=== PATIENT | female | born 1995 | race Caucasian/White ===

== ENCOUNTER → 2020-10-02 | Outpatient (CLI) | payer OTHER ==
[~2020-10-02] MED LIST: DOCUSATE SODIU100 MG PO; HYDROCODON-ACE1 EAC4 PO; IBU800 MG PO; IBUPROFEN600 MG PO; IRON325 M1 PO; NAPROSYN500 MG PO; NORCO 5-325 TA1 EACH PO; PRENATABS FA T1 EACH PO
[2020-10-02 14:13] LABS: HEMOGLOBIN 12.6 gm/dl (12.3-15.3); RED BLOOD COUNT 4.2 M/UL (4.00-5.10); WHITE BLOOD COUNT 9.5 K/UL (4.5-11.0)
== END ==
LOC: GENOP 12:53
PROVIDERS: Obstetrics & Gynecology
DX: Z53.8 Procedure and treatment not carried out for other reasons (principal)
CPT/HCPCS: 36415; 81001; 85025; J7120

== ENCOUNTER 2020-10-03 06:31 | Inpatient (IN) | payer OTHER ==
[~2020-10-03] VITALS: Ht 162.6 cm; Wt 100.7 kg
[~2020-10-03 06:31] MED LIST changes: -DOCUSATE SODIU100 MG PO; -HYDROCODON-ACE1 EAC4 PO; -IBUPROFEN600 MG PO; -IRON325 M1 PO; -PRENATABS FA T1 EACH PO
[2020-10-03] MEDS ORDERED: IRON325 M1 PO (07:15)
[2020-10-03] MEDS ORDERED: PRENATABS FA T1 EACH PO (07:16)
[2020-10-04 06:30] LABS: HEMOGLOBIN 10.5 gm/dl (12.3-15.3)
[2020-10-04] MEDS ORDERED: HYDROCODON-ACE1 EAC4 PO (11:36)
[2020-10-04] MEDS ORDERED: IBUPROFEN600 MG PO (11:36)
[2020-10-04] MEDS ORDERED: DOCUSATE SODIU100 MG PO (11:36)
== END 2020-10-04 14:03 | disposition home or self-care (01) | DRG 788 ==
LOC: OB 06:31
PROVIDERS: ADMIT Obstetrics & Gynecology
PROC: 10D00Z1 Extraction of Products of Conception, Low, Open Approach (ICD-10-PCS; principal; 2020-10-03 07:30)
PROC: 3E0234Z Introduction of Serum, Toxoid and Vaccine into Muscle, Percutaneous Approach (ICD-10-PCS; 2020-10-04)
DX: O32.1XX0 Maternal care for breech presentation, not applicable or unspecified (principal); Z3A.39 39 weeks gestation of pregnancy; Z37.0 Single live birth; Z88.2 Allergy status to sulfonamides; Z20.822 Contact with and (suspected) exposure to COVID-19; Z23 Encounter for immunization
CPT/HCPCS: 36415; 81001; 82800; 85014; 85018; 85025; 90471; 90715; C9113; J0690; J1170; J1885; J2274; J2370; J2405; J2590; J3010; J7120; U0003

== ENCOUNTER 2021-06-04 09:09 | Emergency (ER) | payer OTHER ==
[~2021-06-04 09:09] MED LIST changes: +DOCUSATE SODIU100 MG PO; +HYDROCODON-ACE1 EAC4 PO; +IBUPROFEN600 MG PO; +IRON325 M1 PO; +PRENATABS FA T1 EACH PO
[2021-06-04 10:11] LABS: HEMOGLOBIN 14.4 gm/dl (12.3-15.3); RED BLOOD COUNT 4.94 M/UL (4.00-5.10); WHITE BLOOD COUNT 5.8 K/UL (4.5-11.0)
[2021-06-04 10:35] LABS: BUN/CREATININE RATIO 11 (0-10)
[2021-06-04] MEDS ORDERED: ZOFRAN4 MG PO (13:30)
[2021-06-04] MEDS ORDERED: BENTYL 20MG TAB20 MG PO (13:30)
== END 2021-06-04 14:00 | disposition home or self-care (01) ==
LOC: ER1 09:09
PROVIDERS: Physician Assistant
DX: R10.32 Left lower quadrant pain (principal); Z88.2 Allergy status to sulfonamides; Z20.822 Contact with and (suspected) exposure to COVID-19
CPT/HCPCS: 80053; 81001; 84703; 85025; 96374; 96375; 99284; J1885; J2270; J2405; J7030; Q9967; U0002